=== PATIENT | male | born 1955 | race Caucasian/White ===

== ENCOUNTER 2017-07-24 11:38 | Emergency (ER) | payer BC ==
[2017-07-24 15:50] LABS: ADD MAN DIFF? NO
[2017-07-24 15:52] LABS: BASOPHILS % 0.3 % (0.0-2.0); EOSINOPHILS # 0.1 10^3/ul (0.0-0.5); EOSINOPHILS % 0.4 % (0.0-7.0); HEMATOCRIT 32.7 % (42.0-52.0); HEMOGLOBIN 10.8 g/dl (14.0-18.0); LYMPHOCYTES # 1.8 10^3/ul (0.8-2.9); LYMPHOCYTES % 16.2 % (15.0-51.0); MEAN CORPUSCULAR HEMOGLOBIN 30.1 pg (29.0-33.0); MEAN CORPUSCULAR VOLUME 91.1 fl (82.0-101.0); MEAN PLATELET VOLUME 11.4 fl (7.4-10.4); MONOCYTE # 0.6 10^3/ul (0.3-0.9); MONOCYTES % 5.1 % (0.0-11.0); NEUTROPHIL # 8.7 10^3/ul (1.6-7.5); NEUTROPHILS % 77.5 % (39.0-77.0); PLATELET COUNT 240 10^3/UL (140-415); RED BLOOD COUNT 3.59 10^6/ul (4.70-6.10); RED CELL DISTRIBUTION WIDTH 13.6 % (11.5-14.5)
[2017-07-24 15:52] LABS: WHITE BLOOD COUNT 11.3 10^3/ul (4.8-10.8)
[2017-07-24 16:26] LABS: INR 0.98; PROTIME 13.1 Sec (11.9-14.9)
[2017-07-24] MEDS: FAMOTIDINE 20 MG INJ IV (16:26)
[2017-07-24] MEDS: ONDANSETRON 4 MG INJ IV (16:26)
[2017-07-24 16:27] LABS: PARTIAL THROMBOPLASTIN TIME 25.5 Sec (25.0-35.0)
[2017-07-24] MEDS: SOD CHLORIDE 0.9% 1,000 ML IV (16:27)
[2017-07-24] MEDS: morphine 4 MG/ML VIAL IV (16:27)
[2017-07-24 16:31] LABS: ALANINE AMINOTRANSFERASE 25 IU/L (13-69); ALBUMIN 4.1 g/dl (3.3-4.9); ALBUMIN/GLOBULIN RATIO 1.41; ALKALINE PHOSPHATASE 39 IU/L (42-121); ANION GAP 21 (8-16); ASPARTATE AMINO TRANSFERASE 24 IU/L (15-46); BILIRUBIN,INDIRECT 0.3 mg/dl (0-1.1); BILIRUBIN,TOTAL 0.3 mg/dl (0.2-1.3); BLOOD UREA NITROGEN 53 mg/dl (7-20); CARBON DIOXIDE 25 mmol/L (21-31); CHLORIDE 101 mmol/L (97-110); CREATININE 1.42 mg/dl (0.61-1.24); GLUCOSE 281 mg/dl (70-220); LIPASE 78 U/L (23-300); POTASSIUM 5.6 mmol/L (3.5-5.1); SODIUM 141 mmol/L (135-144)
[2017-07-24 16:42] LABS: TROPONIN-I 0.043 ng/ml (0.000-0.120)
[2017-07-24] MEDS ORDERED: ALBUTEROL 0.5% (NEB) 2.5 MG/0.5 ML AMP INH (18:58)
[2017-07-24 19:18] LABS: ANION GAP 14 (8-16); BLOOD UREA NITROGEN 57 mg/dl (7-20); CALCIUM 8.4 mg/dl (8.4-10.2); CARBON DIOXIDE 27 mmol/L (21-31); CHLORIDE 107 mmol/L (97-110); CREATININE 1.24 mg/dl (0.61-1.24); GLUCOSE 129 mg/dl (70-220); SODIUM 143 mmol/L (135-144)
== END 2017-07-24 20:43 | disposition home or self-care (01) ==
LOC: E/R 11:38
DX: E86.0 Dehydration (principal); R19.7 Diarrhea, unspecified; R91.1 Solitary pulmonary nodule; I10 Essential (primary) hypertension; E11.9 Type 2 diabetes mellitus without complications; I25.10 Atherosclerotic heart disease of native coronary artery without angina pectoris; R10.9 Unspecified abdominal pain; Z79.82 Long term (current) use of aspirin; Z79.4 Long term (current) use of insulin
CPT/HCPCS: 36415; 71045; 74176; 80048; 80053; 82962; 83690; 84484; 85025; 85610; 85730; 93005; 96374; 96375; 99285-25